=== PATIENT | female | born 1945 | race Caucasian/White ===

== ENCOUNTER 2016-11-19 16:05 | Outpatient (CLI) | payer MEDICARE, OTHER | END 2016-11-19 16:06 | disposition home or self-care (01) | DX: Z01.812 Encounter for preprocedural laboratory examination (principal); E03.9 Hypothyroidism, unspecified; E55.9 Vitamin D deficiency, unspecified; E78.2 Mixed hyperlipidemia; Z79.899 Other long term (current) drug therapy ==

== ENCOUNTER 2017-01-11 13:23 | Outpatient (CLI) | payer MEDICARE, OTHER | END 2017-01-11 13:24 | disposition home or self-care (01) | DX: Z12.31 Encounter for screening mammogram for malignant neoplasm of breast (principal); R92.1 Mammographic calcification found on diagnostic imaging of breast; Z80.3 Family history of malignant neoplasm of breast ==

== ENCOUNTER 2017-01-20 12:01 | Outpatient (CLI) | payer MEDICARE, OTHER | END 2017-01-20 12:02 | disposition home or self-care (01) | DX: R92.8 Other abnormal and inconclusive findings on diagnostic imaging of breast (principal); N60.01 Solitary cyst of right breast | CPT/HCPCS: 76642; G0206 ==

== ENCOUNTER 2017-01-21 13:09 | Outpatient (CLI) | payer MEDICARE, OTHER | END 2017-01-21 13:10 | disposition home or self-care (01) | LOC: NS 13:09 | PROVIDERS: ATTEND Physician Assistant Medical | DX: Z71.3 Dietary counseling and surveillance (principal); R73.01 Impaired fasting glucose; E66.9 Obesity, unspecified ==

== ENCOUNTER 2017-06-29 12:43 | Outpatient (CLI) | payer MEDICARE, OTHER ==
--- NOTE | 2017-06-29 17:45 | CT Report ---
CT BRAIN WITHOUT CONTRAST: 06/29/2017 CLINICAL INDICATION: Followup intracranial hemorrhage from outside CT. Axial CT images of the brain were obtained without contrast. In accordance with CT protocol optimization, one or more of the following dose reduction techniques w ere utilized for this exam: automated exposure control, adjustment of mA and/or KV based on patient size, or use of iterative reconstructive technique. Comparison is made to reports of previous CTs of 06/08/2017 and 06/07/2017. The ventricles and sulci are normal in size, shape and configuration. The previously described left subarachnoid and subdural hemorrhage have resolved. The basilar cisterns are patent. There is no ev idence of developing hydrocephalus. The visualized orbital contents and paranasal sinuses appear unr emarkable. IMPRESSION: INTERVAL RESOLUTION OF LEFT SUBDURAL AND SUBARACHNOID BLOOD PREVIOUSLY DESCRIBED. NO EV IDENCE OF DEVELOPING HYDROCEPHALUS. IF OUTSIDE IMAGES BECOME AVAILABLE, AN ADDENDUM WILL BE MADE TO THIS REPORT. JOB #: [id number] EXT JOB #:[id number]
== END 2017-06-29 12:44 | disposition home or self-care (01) ==
LOC: DI 12:43
PROVIDERS: ATTEND Physician Assistant Medical
DX: I62.00 Nontraumatic subdural hemorrhage, unspecified (principal); I10 Essential (primary) hypertension
CPT/HCPCS: 70450

== ENCOUNTER 2017-08-24 09:43 | Outpatient (CLI) | payer MEDICARE, OTHER ==
--- NOTE | 2017-08-24 13:19 | XRAY Report ---
EXAM: RIGHT KNEE RADIOGRAPHY EXAM DATE: 08/24/2017 10:00 AM. CLINICAL HISTORY: Right knee pain. Follow up patellar fracture. COMPARISON: 06/21/2017. TECHNIQUE: 4 views. FINDINGS: Bones: Sclerosis and irregular lucency along the inferior patella likely representing healing fractur e. Sclerosis noted along the right lateral tibial plateau. Joints: Right knee effusion. No significant joint space narrowing. Soft Tissues: Normal. No soft tissue swelling. IMPRESSION: 1. Healing inferior right patellar fracture. 2. Sclerosis along the proximal right tibial plateau, nonspecific degenerative or posttraumatic in or igin. [facility] Referring Provider Line: [phone] SITE ID: [id number]
== END 2017-08-24 09:44 | disposition home or self-care (01) ==
LOC: DI 09:43
PROVIDERS: ATTEND Physician Assistant Medical
DX: S82.001D Unspecified fracture of right patella, subsequent encounter for closed fracture with routine healing (principal)

== ENCOUNTER 2018-01-26 08:00 | Outpatient (CLI) | payer MEDICARE, OTHER ==
--- NOTE | 2018-01-26 17:14 | Mammography Report ---
SCREENING MAMMOGRAM: 01/26/2018 CLINICAL INDICATION: A 72-year-old with family history of breast cancer for screening. COMPARISON: 01/2017, 12/2016, 10/2012, 10/2011, 03/2009. TECHNIQUE: Routine CC and MLO projections were obtained of the breasts. FINDINGS: The breasts again demonstrate scattered fibroglandular densities bilaterally. Coarse and punctate, typically benign calcifications are present. No suspicious masses, clustered microcalcifications, or regions of architectural distortion are identified. IMPRESSION: BENIGN FINDINGS. RECOMMENDATION: Routine annual screening unless otherwise clinically indicated. BI-RADS CATEGORY 2 BENIGN FINDINGS. STANDARD QUALIFYING STATEMENTS: 1. This examination was reviewed with the aid of Computer-Aided Detection (CAD). 2. A negative or benign imaging report should not delay biopsy if clinically suspicious findings are present. Consider surgical consultation if warranted. More than 5% of cancers are not identified by imaging. 3. Dense breasts may obscure an underlying neoplasm. TD: 01/26/2018 17:13
== END 2018-01-26 08:01 | disposition home or self-care (01) ==
LOC: DI 08:00
PROVIDERS: ATTEND Physician Assistant Medical
DX: Z12.31 Encounter for screening mammogram for malignant neoplasm of breast (principal)
CPT/HCPCS: 77067

== ENCOUNTER 2018-04-21 12:03 | Outpatient (CLI) | payer MEDICARE, OTHER ==
[2018-04-21 12:36] LABS: ALBUMIN 4.2 g/dL (3.2-5.5); ALBUMIN/GLOBULIN RATIO 1.2 (1.0-2.2); BILIRUBIN,TOTAL 0.9 mg/dL (0.2-1.0); CALCIUM 10.6 mg/dL (8.5-10.3); CREATININE 0.9 mg/dL (0.4-1.0); TOTAL PROTEIN 7.8 g/dL (6.7-8.2)
--- NOTE | 2018-04-21 12:43 | XRAY Report ---
Procedure Date: 04/21/2018 Accession Number: [id number] / [id number] Procedure: XR - Chest 2 View X-Ray CPT Code: 29149 FULL RESULT: EXAM: Chest 2 View X-Ray DATE: 04/21/2018 12:37 PM CLINICAL HISTORY: CHEST PRESSURE,RBBB COMPARISON: None. TECHNIQUE: 2 views. FINDINGS: Lungs/Pleura: No focal opacities evident. No pneumothorax or pleural effusion. Normal volumes. Mediastinum: Heart and mediastinal contours are unremarkable. Other: None. IMPRESSION: Normal 2-view chest radiography. [facility]
== END 2018-04-21 12:04 | disposition home or self-care (01) ==
LOC: LAB 12:03 → DI 12:04
PROVIDERS: ATTEND Physician Assistant Medical
DX: R06.00 Dyspnea, unspecified (principal); R07.89 Other chest pain; I45.10 Unspecified right bundle-branch block
CPT/HCPCS: 36415; 71046; 80053; 83880; 84484; 85379

== ENCOUNTER 2018-06-29 05:31 | Emergency (ER) | payer MEDICARE, OTHER ==
[2018-06-29 05:49] LABS: BASOPHILS # (AUTO) 0.1 10^3/uL (0.0-0.1); BASOPHILS % (AUTO) 1.4 %; EOSINOPHILS # (AUTO) 0.2 10^3/uL (0.0-0.7); LYMPHOCYTES # (AUTO) 1.8 10^3/uL (1.5-3.5); LYMPHOCYTES % (AUTO) 27.6 %; MEAN CORPUSCULAR HEMOGLOBIN 29.4 pg (27.0-31.0); MEAN CORPUSCULAR HGB CONC 33.3 g/dL (32.0-36.0); MEAN CORPUSCULAR VOLUME 88.1 fL (81.0-99.0); MEAN PLATELET VOLUME 8.8 fL (7.9-10.8); MONOCYTES # (AUTO) 0.5 10^3/uL (0.0-1.0); MONOCYTES % (AUTO) 6.9 %; NEUTROPHILS # (AUTO) 4.1 10^3/uL (1.5-6.6); NEUTROPHILS % (AUTO) 61.1 %; PLT - PLATELET COUNT 235 10^3/uL (130-450); RED BLOOD COUNT 5.09 10^6/uL (4.20-5.40); RED CELL DISTRIBUTION WIDTH 13.5 % (12.0-15.0); WHITE BLOOD COUNT 6.7 x10^3/uL (4.8-10.8)
[2018-06-29] MEDS ORDERED: ONDANSETRON 4 MG/2 ML VIAL IVP STA (05:49)
[2018-06-29] MEDS ORDERED: SODIUM CHLORIDE 0.9% 1,000 ML IV ONE (05:49)
[2018-06-29] MEDS ORDERED: KETOROLAC 60 MG/2 ML VIAL IVP STA (05:49)
[2018-06-29 05:55] LABS: BILIRUBIN,URINE NEGATIVE (NEGATIVE); GLUCOSE, URINE (UA) NEGATIVE (NEGATIVE); KETONES,URINE (UA) NEGATIVE (NEGATIVE); LEUKOCYTE ESTERASE, URINE NEGATIVE (NEGATIVE); NITRITE,URINE NEGATIVE (NEGATIVE); OCCULT BLOOD,URINE LARGE (NEGATIVE); PROTEIN,URINE NEGATIVE (NEGATIVE); UROBILINOGEN,URINE 0.2 (NORMAL) E.U./dL (NORMAL)
--- NOTE | 2018-06-29 05:55 | ED Physician Documentation ---
PD HPI ABD PAIN - Stated complaint Stated Complaint: NAUSEA/VOMITING/L SIDE ABD PAIN - Chief complaint Chief Complaint: Abd Pain - History obtained from History obtained from: Patient, Family - History of Present Illness Timing - onset: Today Timing - duration: Hours (3) Timing - details: Abrupt onset Pain level max: 10 Pain level now: 9 Quality: Aching, Pain Location: LLQ Radiation: Lower back Improved by: Other (nothing) Worsened by: Other (nothing) Associated symptoms: Nausea. No: Fever, Vomiting, Hematemesis, Diarrhea, Constipation, Melena, Hematochezia, Dysuria, Hematuria Similar symptoms before: Has not had sx before Recently seen: Not recently seen Review of Systems Ten Systems: 10 systems reviewed and negative Constitutional: denies: Fever, Chills Cardiac: denies: Chest pain / pressure Respiratory: denies: Cough : denies: Dysuria, Frequency, Hesitancy, Hematuria Skin: denies: Rash Musculoskeletal: denies: Neck pain, Back pain, Extremity pain Neurologic: denies: Generalized weakness, Focal weakness, Numbness, Headache PD PAST MEDICAL HISTORY - Past Medical History Past Medical History: Yes Cardiovascular: Hypertension Respiratory: Asthma Endocrine/Autoimmune: HyPOthyroidism GI: Other - Past Surgical History Past Surgical History: Yes 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 HEENT: Tonsil/Adenoidectomy - Present Medications Home Medications: Ambulatory Orders Medication Instructions Recorded Confirmed Levothyroxine Sodium [Synthroid] 100 mcg PO DAILY 03/19/15 12/26/15 Losartan [Cozaar] 100 mg PO DAILY 12/26/15 12/26/15 Carvedilol 1 tab PO BID 06/29/18 06/29/18 Cholecalciferol [Vitamin D3] 10,000 unit PO DAILY 06/29/18 06/29/18 Estrogen,Con/M-Progest Acet 1 tab PO DAILY 06/29/18 06/29/18 [Prempro 0.625-2.5 mg Tablet] Ibuprofen [Motrin] 800 mg PO Q8H PRN #30 tablet 06/29/18 [place]-3/Dha/Epa/Fish Oil [[place] 3 1 cap PO DAILY 06/29/18 06/29/18 500 Softgel] Ondansetron Odt [Zofran] 4 mg TL Q6H PRN #10 tablet 06/29/18 Oxycodone HCl/Acetaminophen 1 - 2 each PO Q6H PRN #14 tablet 06/29/18 [Percocet 5-325 mg Tablet] amLODIPine [Norvasc] 5 mg PO BID 06/29/18 06/29/18 hydroCHLOROthiazide [Hydrodiuril] 12.5 mg PO DAILY 06/29/18 06/29/18 - Allergies Allergies/Adverse Reactions: Allergies Allergy/AdvReac Type Severity Reaction Status Date / Time No Known Drug Allergies Allergy Verified 06/29/18 05:46 - Social History Does the pt smoke?: No Smoking Status: Never smoker Does the pt drink ETOH?: No Does the pt have substance abuse?: No - Immunizations Immunizations are current?: Yes Immunizations: TDAP >10years/unknown - POLST Patient has POLST: No PD ED PE NORMAL - Vitals Vital signs reviewed: Yes - General General: Alert and oriented X 3, No acute distress - HEENT HEENT: Moist mucous membranes - Neck Neck: Supple, no meningeal sign - Cardiac Cardiac: RRR - Respiratory Respiratory: No respiratory distress, Clear bilaterally - Abdomen Abdomen: Soft, Other (Tender to palpation left lower quadrant. No rebound or guarding. No peritoneal signs) - Back Back: No CVA TTP, No spinal TTP - Derm Derm: Warm and dry - Neuro Neuro: Alert and oriented X 3 - Psych Psych: Normal mood, Normal affect Results - Vitals Vitals: Vital Signs - 24 hr 06/29/18 05:35 Temperature 36.8 C Heart Rate 74 Respiratory 20 Rate Blood Pressure 164/100 H O2 Saturation 98 Oxygen O2 Source Room air - Labs Labs: Laboratory Tests 06/29/18 05:40 WBC 6.7 RBC 5.09 Hgb 15.0 Hct 44.9 MCV 88.1 MCH 29.4 MCHC 33.3 RDW 13.5 Plt Count 235 MPV 8.8 Neut # (Auto) 4.1 Lymph # (Auto) 1.8 [place] # (Auto) 0.5 Eos # (Auto) 0.2 Baso # (Auto) 0.1 Absolute Nucleated RBC 0.00 Nucleated RBC % 0.0 - Rads (name of study) CT abd/pelvis Radiology: Prelim report reviewed, EMP read contemporaneously, See rad report (4 mm calculus in the distal left ureter, producing left hydronephrosis and hydroureter. ) PD MEDICAL DECISION MAKING - ED course Complexity details: reviewed results, re-evaluated patient, considered differential, d/w patient, d/w family ED course: Patient is a 73-year-old female with a distal left ureteral stone, 4 mm. Pain well controlled in the emergency department with Toradol, morphine and IV lidocaine. Will place on pain medications for home and have her follow-up closely with her doctor. No evidence of infected ureteral stone. No pyelonephritis. Patient counseled regarding signs and symptoms for which I believe and urgent re-evaluation would be necessary. Patient with good understanding of and agreement to plan and is comfortable going home at this time This document was made in part using voice recognition software. While efforts are made to proofread this document, sound alike and grammatical errors may occur. - Sepsis Event Vital Signs: Vital Signs - 24 hr 06/29/18 05:35 Temperature 36.8 C Heart Rate 74 Respiratory 20 Rate Blood Pressure 164/100 H O2 Saturation 98 Oxygen O2 Source Room air Departure - Departure Disposition: 01 Home, Self Care Clinical Impression: Ureteral stone Condition: Good Instructions: ED Stone Renal W Colic Follow-Up: Raquel Daly PA-C [Primary Care Provider] - Within 1 week Prescriptions: Ibuprofen [Motrin] 800 mg PO Q8H PRN #30 tablet PRN Reason: PAIN &/OR FEVER Ondansetron Odt [Zofran] 4 mg TL Q6H PRN #10 tablet PRN Reason: Nausea / Vomiting Oxycodone HCl/Acetaminophen [Percocet 5-325 mg Tablet] 1 - 2 each PO Q6H PRN #14 tablet PRN Reason: pain Comments: You appear to have a 4 mm distal left ureteral stone. This should pass without difficulty. Continue the pain medications as prescribed. Return if you worsen. Do not drink alcohol or drive while on narcotic pain medicine. Note that many narcotic pain relievers also contain tylenol/acetaminophen. Please ensure that your total dose of acetaminophen from all sources does not exceed 3 grams (3000mg) per day. You may constipated on this medication, take a stool softener such as "Colace" twice a day while you are on it. Also recommend a [id number]-xec-[id number] laxative such as senna or MiraLAX any day that you do not have a bowel movement. If you received narcotic pain medication in the emergency department, do not drive or operate machinery for the next 24 hours.
[2018-06-29 06:00] LABS: ALBUMIN 4.4 g/dL (3.2-5.5); ALBUMIN/GLOBULIN RATIO 1.2 (1.0-2.2); BILIRUBIN,TOTAL 0.3 mg/dL (0.2-1.0); CALCIUM 9.3 mg/dL (8.5-10.3); TOTAL PROTEIN 8.1 g/dL (6.7-8.2)
[2018-06-29] MEDS ORDERED: IOPAMIDOL-300 100 ML VIAL ONE (06:03)
[2018-06-29 06:06] LABS: BACTERIA,URINE Rare /HPF (None Seen); CLARITY,URINE HAZY (CLEAR); RBC,URINE TNTC /HPF (0-5); SQUAMOUS EPITHELIAL CELL,UR FEW Squamous (<= Few)
[2018-06-29] MEDS ORDERED: MORPHINE 2 MG/ML CARPUJECT IVP STA (06:13)
[2018-06-29] MEDS ORDERED: IOPAMIDOL-300 100 ML VIAL IVP ONE (06:47)
[2018-06-29] MEDS ORDERED: LIDOCAINE-MPF 2% 6 ML in SODIUM CHLORIDE 0.9% 50 ML IV STA (06:54)
--- NOTE | 2018-06-29 06:54 | CT Report ---
Reason: LLQ abd pain Procedure Date: 06/29/2018 Accession Number: [id number] / [id number] Procedure: CT - Abdomen/Pelvis W/ CPT Code: FULL RESULT: EXAM: CT ABDOMEN AND PELVIS EXAM DATE: 06/29/2018 06:43 AM. CLINICAL HISTORY: LLQ abd pain. COMPARISONS: ABDOMEN/PELVIS W/O 04/12/2015 12:40 AM. TECHNIQUE: Routine helical CT imaging was performed through the abdomen and pelvis. IV contrast: 100 ML ISOVUE 300. Enteric contrast: No. Reconstructions: Coronal and sagittal. In accordance with CT protocol optimization, one or more of the following dose reduction techniques were utilized for this exam: automated exposure control, adjustment of mA and/or KV based on patient size, or use of iterative reconstructive technique. FINDINGS: Lung Bases: Unremarkable. Liver: Normal. No masses. Gallbladder/Bile Ducts: Postoperative changes of cholecystectomy. No biliary dilatation. Spleen: Normal. Pancreas: Normal. Adrenal Glands: Normal. Kidneys: There is delayed excretion of contrast by the left kidney, relative to the right, with mild left hydronephrosis and hydroureter. There is a 4 mm calculus in the distal left ureter. Peritoneal Cavity/Bowel: Normal. No free fluid, free air or adenopathy. No masses or acute inflammatory process. Colonic diverticulosis, without CT evidence of diverticulitis. Pelvic Organs: Normal. The bladder and visualized pelvic organs are within normal limits. Vasculature: No aneurysms or other significant abnormality. Bones: No significant abnormality. Other: Small periumbilical hernia, containing fat. IMPRESSION: 4 mm calculus in the distal left ureter, producing left hydronephrosis and hydroureter. [facility]
[2018-06-29 07:42] VITALS: BP 111/88
== END 2018-06-29 07:41 | disposition home or self-care (01) ==
LOC: ED 05:31
DX: N13.2 Hydronephrosis with renal and ureteral calculous obstruction (principal); I10 Essential (primary) hypertension; E03.9 Hypothyroidism, unspecified
CPT/HCPCS: 36415; 74177; 80053; 81001; 83690; 85025; 96374; 96375; 99284; J7040; Q9967; 81003; 87086

== ENCOUNTER 2018-07-21 14:42 | Outpatient (CLI) | payer MEDICARE, OTHER ==
[2018-07-21] MEDS ORDERED: IOPAMIDOL-300 100 ML VIAL ONE (14:53)
[2018-07-21] MEDS ORDERED: IOPAMIDOL-300 100 ML VIAL IVP ONE (15:24)
--- NOTE | 2018-07-21 15:33 | CT Report ---
Reason: ABDOMINAL PAIN, LLQ Procedure Date: 07/21/2018 Accession Number: [id number] / [id number] Procedure: CT - Abdomen/Pelvis W/WO CPT Code: FULL RESULT: EXAM: CT ABDOMEN WITHOUT AND WITH CONTRAST EXAM DATE: 07/21/2018 03:16 PM. HISTORY: ABDOMINAL PAIN, LLQ. COMPARISON: ABDOMEN/PELVIS W/ 06/29/2018 6:31 AM. TECHNIQUE: Routine helical CT imaging was performed through the abdomen before and after administration of IV contrast: ISOVUE 300 100mL. Enteric contrast: No. Reconstruction: Coronal and sagittal. In accordance with CT protocol optimization, one or more of the following dose reduction techniques were utilized for this exam: automated exposure control, adjustment of mA and/or KV based on patient size, or use of iterative reconstructive technique. FINDINGS: Lung Bases: Unremarkable. Liver: Normal. No masses. Gallbladder/Bile Ducts: Unremarkable. Spleen: Normal. Pancreas: Normal. No masses or ductal obstruction. Adrenal Glands: Normal. Kidneys: No evidence of significant left hydronephrosis. There is mild left hydroureter. There is a 0.5 x 0.3 cm stone at the left ureterovesicular junction. There are small nonobstructing stones within the mid right kidney. No evidence of right-sided obstructing stone or hydronephrosis. Peritoneal Cavity/Bowel: Normal. No free fluid, free air or adenopathy. No masses or acute inflammatory process. The appendix is not seen. Vasculature: No aneurysms or other significant abnormality. Bones: No significant abnormality. Other: None. IMPRESSION: 1. There is a 0.5 x 0.3 cm stone at the left ureterovesicular junction. There is mild left hydroureter. No evidence of significant left hydronephrosis. 2. There are small nonobstructing stones within the right kidney. 3. No acute gastrointestinal tract abnormalities are seen. [facility]
== END 2018-07-21 14:43 | disposition home or self-care (01) ==
LOC: DI 14:42
PROVIDERS: ATTEND Physician Assistant Medical
DX: N20.2 Calculus of kidney with calculus of ureter (principal); N13.4 Hydroureter
CPT/HCPCS: 74178; Q9967

== ENCOUNTER → 2018-07-21 | Outpatient (CLI) | payer MEDICARE, OTHER ==
[2018-07-21 15:14] LABS: BASOPHILS # (AUTO) 0.1 10^3/uL (0.0-0.1); BASOPHILS % (AUTO) 1.4 %; EOSINOPHILS # (AUTO) 0.3 10^3/uL (0.0-0.7); EOSINOPHILS % (AUTO) 3.6 %; HGB - HEMOGLOBIN 14.6 g/dL (12.0-16.0); LYMPHOCYTES # (AUTO) 2.3 10^3/uL (1.5-3.5); LYMPHOCYTES % (AUTO) 31.3 %; MEAN CORPUSCULAR HEMOGLOBIN 29.7 pg (27.0-31.0); MEAN CORPUSCULAR VOLUME 87.4 fL (81.0-99.0); MEAN PLATELET VOLUME 9.9 fL (7.9-10.8); MONOCYTES # (AUTO) 0.5 10^3/uL (0.0-1.0); MONOCYTES % (AUTO) 7.1 %; NEUTROPHILS # (AUTO) 4.1 10^3/uL (1.5-6.6); NEUTROPHILS % (AUTO) 56.6 %; PLT - PLATELET COUNT 256 10^3/uL (130-450); RED BLOOD COUNT 4.92 10^6/uL (4.20-5.40); RED CELL DISTRIBUTION WIDTH 13.6 % (12.0-15.0); WHITE BLOOD COUNT 7.3 x10^3/uL (4.8-10.8)
[2018-07-21 15:30] LABS: ALBUMIN 4.5 g/dL (3.2-5.5); ALBUMIN/GLOBULIN RATIO 1.2 (1.0-2.2); ALKALINE PHOSPHATASE 82 IU/L (42-121); ALT ALANINE AMINOTRANSFERASE 20 IU/L (10-60); AST ASPARTATE AMINOTRANSFERASE 26 IU/L (10-42); BILIRUBIN,TOTAL 0.9 mg/dL (0.2-1.0); BUN - BLOOD UREA NITROGEN 19 mg/dL (6-20); CALCIUM 9.6 mg/dL (8.5-10.3); CARBON DIOXIDE - CO2 24 mmol/L (21-32); CHLORIDE 101 mmol/L (101-111); CREATININE 0.8 mg/dL (0.4-1.0); GFR - MDRD 71 (>89); GLUCOSE 125 mg/dL (70-100); LIPASE 38 U/L (22-51); SODIUM 137 mmol/L (135-145); TOTAL PROTEIN 8.3 g/dL (6.7-8.2)
[2018-07-21 15:50] LABS: CRP - C-REACTIVE PROTEIN < 1.0 mg/dL (0-1.0)
== END ==
LOC: LAB.R 13:42
PROVIDERS: ATTEND Physician Assistant Medical
DX: R10.32 Left lower quadrant pain (principal)
CPT/HCPCS: 80053; 83690; 85025; 85651; 86140

== ENCOUNTER 2018-08-23 08:00 | Outpatient (CLI) | payer MEDICARE, OTHER ==
[2018-08-23 13:02] LABS: ALBUMIN 4.3 g/dL (3.2-5.5); ALBUMIN/GLOBULIN RATIO 1.2 (1.0-2.2); ALKALINE PHOSPHATASE 84 IU/L (42-121); ALT ALANINE AMINOTRANSFERASE 22 IU/L (10-60); AST ASPARTATE AMINOTRANSFERASE 24 IU/L (10-42); BILIRUBIN,TOTAL 0.5 mg/dL (0.2-1.0); BUN - BLOOD UREA NITROGEN 17 mg/dL (6-20); CALCIUM 9.5 mg/dL (8.5-10.3); CARBON DIOXIDE - CO2 25 mmol/L (21-32); CHLORIDE 107 mmol/L (101-111); CHOL/HDL RATIO 3.8 (<4.4); CHOLESTEROL 210 mg/dL; CREATININE 0.8 mg/dL (0.4-1.0); GFR - MDRD 71 (>89); GLUCOSE 115 mg/dL (70-100); HDL CHOLESTEROL 56 mg/dL; LDL CHOLESTEROL,CALCULATED 141 mg/dL; LDL/HDL RATIO 2.5 (<4.4); SODIUM 140 mmol/L (135-145); TOTAL PROTEIN 7.8 g/dL (6.7-8.2); VLDL CHOLESTEROL 13 mg/dL
[2018-08-23 13:26] LABS: HB2 TOTAL 16.1 g/dL; HEMOGLOBIN A1C 0.58 g/dL; HEMOGLOBIN A1C % 5.4 % (4.6-6.2)
== END 2018-08-23 23:59 | disposition home or self-care (01) ==
LOC: LAB.R 08:00
PROVIDERS: ATTEND Physician Assistant Medical
DX: R73.9 Hyperglycemia, unspecified (principal); Z79.899 Other long term (current) drug therapy; E03.9 Hypothyroidism, unspecified; E78.2 Mixed hyperlipidemia
CPT/HCPCS: 80053; 80061; 83036; 83721; 84443

== ENCOUNTER 2018-10-05 08:00 | Outpatient (CLI) | payer MEDICARE, OTHER ==
[2018-10-05 12:11] LABS: ALT ALANINE AMINOTRANSFERASE 24 IU/L (10-60); AST ASPARTATE AMINOTRANSFERASE 22 IU/L (10-42); CHOL/HDL RATIO 2.6 (<4.4); CHOLESTEROL 148 mg/dL; HDL CHOLESTEROL 57 mg/dL; LDL CHOLESTEROL,CALCULATED 78 mg/dL; LDL/HDL RATIO 1.4 (<4.4); VLDL CHOLESTEROL 13 mg/dL
== END 2018-10-05 23:59 | disposition home or self-care (01) ==
LOC: LAB.R 08:00
PROVIDERS: ATTEND Physician Assistant Medical
DX: E78.2 Mixed hyperlipidemia (principal); Z79.899 Other long term (current) drug therapy
CPT/HCPCS: 80061; 83721; 84450; 84460

== ENCOUNTER 2019-11-30 08:12 | Outpatient (CLI) | payer MEDICARE, OTHER ==
[2019-11-30 12:23] LABS: BASOPHILS # (AUTO) 0.1 10^3/uL (0.0-0.1); BASOPHILS % (AUTO) 0.9 %; EOSINOPHILS # (AUTO) 0.3 10^3/uL (0.0-0.7); EOSINOPHILS % (AUTO) 4.2 %; HGB - HEMOGLOBIN 14.4 g/dL (12.0-16.0); LYMPHOCYTES # (AUTO) 2.3 10^3/uL (1.5-3.5); LYMPHOCYTES % (AUTO) 33.4 %; MEAN CORPUSCULAR HEMOGLOBIN 28.9 pg (27.0-31.0); MEAN CORPUSCULAR HGB CONC 31.6 g/dL (32.0-36.0); MEAN CORPUSCULAR VOLUME 91.2 fL (81.0-99.0); MEAN PLATELET VOLUME 11.4 fL (7.9-10.8); MONOCYTES # (AUTO) 0.7 10^3/uL (0.0-1.0); MONOCYTES % (AUTO) 9.6 %; NEUTROPHILS # (AUTO) 3.6 10^3/uL (1.5-6.6); NEUTROPHILS % (AUTO) 51.6 %; PLT - PLATELET COUNT 242 10^3/uL (130-450); RED BLOOD COUNT 4.99 10^6/uL (4.20-5.40); RED CELL DISTRIBUTION WIDTH 13.3 % (12.0-15.0)
[2019-11-30 12:42] LABS: ALBUMIN 4.1 g/dL (3.2-5.5); ALBUMIN/GLOBULIN RATIO 1.3 (1.0-2.2); ALKALINE PHOSPHATASE 65 IU/L (42-121); ALT ALANINE AMINOTRANSFERASE 23 IU/L (10-60); AST ASPARTATE AMINOTRANSFERASE 21 IU/L (10-42); BILIRUBIN,TOTAL 0.8 mg/dL (0.2-1.0); BUN - BLOOD UREA NITROGEN 19 mg/dL (6-20); CALCIUM 9.2 mg/dL (8.5-10.3); CARBON DIOXIDE - CO2 24 mmol/L (21-32); CHLORIDE 104 mmol/L (101-111); CHOL/HDL RATIO 3.8 (<4.4); CHOLESTEROL 196 mg/dL; GFR - MDRD 54 (>89); GLUCOSE 108 mg/dL (70-100); HDL CHOLESTEROL 51 mg/dL; LDL CHOLESTEROL,CALCULATED 125 mg/dL; LDL/HDL RATIO 2.5 (<4.4); SODIUM 137 mmol/L (135-145); TOTAL PROTEIN 7.3 g/dL (6.7-8.2); VLDL CHOLESTEROL 20 mg/dL
[2019-11-30 13:15] LABS: THYROID STIMULATING HORMONE 2.66 uIU/mL (0.34-5.60)
[2019-11-30 13:17] LABS: FREE T4 (FREE THYROXINE) 0.95 ng/dL (0.58-1.64)
== END 2019-11-30 23:59 | disposition home or self-care (01) ==
LOC: LAB.N 08:12
PROVIDERS: ATTEND Family Medicine
DX: E03.9 Hypothyroidism, unspecified (principal); E78.2 Mixed hyperlipidemia; I10 Essential (primary) hypertension
CPT/HCPCS: 36415; 80053; 80061; 83721; 84439; 84443; 84481; 85025

== ENCOUNTER 2019-12-05 12:12 | Emergency (ER) | payer MEDICARE, OTHER ==
[2019-12-05] MEDS ORDERED: ACETAMINOPHEN 325 MG TABLET PO STA (12:45)
--- NOTE | 2019-12-05 12:48 | ED Physician Documentation ---
PD HPI URI - Stated complaint Stated Complaint: FEVER,COUGH - Chief complaint Chief Complaint: Fever - History obtained from History obtained from: Patient - History of Present Illness Timing - onset: Last night Timing duration: Hours Timing details: Gradual onset, Still present Associated symptoms: Fever, Chills, Sweats, Nasal congestion, Rhinorrhea, Dry cough, Other (nausea and headache) Contributing factors: Sick contact (was around 3 teenagers over the weekend specifically 3 days ago. Kids asymptomatic from [place].) Improves by: Medication Similar symptoms before: Diagnosis (influenza) Recently seen: Clinic - Additional information Additional information: 74-year-old female with a history of fever cough congestion and headache developed last night sent to the emergency department from the clinic with concerns of COVID-19. Her exposure to teenagers from [place] 3 days ago is her concern. Review of Systems Constitutional: reports: Fever, Chills, Myalgias, Fatigue Eyes: denies: Decreased vision Ears: denies: Ear pain Nose: reports: Rhinorrhea / runny nose, Congestion Throat: denies: Sore throat Cardiac: denies: Chest pain / pressure, Palpitations Respiratory: reports: Cough. denies: Dyspnea GI: reports: Nausea. 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 HEENT: Tonsil/Adenoidectomy - Present Medications Home Medications: Ambulatory Orders Medication Instructions Recorded Confirmed Levothyroxine Sodium [Synthroid] 100 mcg PO DAILY 03/19/15 12/26/15 Losartan [Cozaar] 100 mg PO DAILY 12/26/15 12/26/15 Cholecalciferol [Vitamin D3] 10,000 unit PO DAILY 06/29/18 06/29/18 Estrogen,Con/M-Progest Acet 1 tab PO DAILY 06/29/18 06/29/18 [Prempro 0.625-2.5 mg Tablet] Ibuprofen [Motrin] 800 mg PO Q8H PRN #30 tablet 06/29/18 [place]-3/Dha/Epa/Fish Oil [[place] 3 1 cap PO DAILY 06/29/18 06/29/18 500 Softgel] Ondansetron Odt [Zofran] 4 mg TL Q6H PRN #10 tablet 06/29/18 Oxycodone HCl/Acetaminophen 1 - 2 each PO Q6H PRN #14 tablet 06/29/18 [Percocet 5-325 mg Tablet] amLODIPine [Norvasc] 5 mg PO BID 06/29/18 06/29/18 carvediloL [Carvedilol] 1 tab PO BID 06/29/18 06/29/18 hydroCHLOROthiazide [Hydrodiuril] 12.5 mg PO DAILY 06/29/18 06/29/18 - Allergies Allergies/Adverse Reactions: Allergies Allergy/AdvReac Type Severity Reaction Status Date / Time No Known Drug Allergies Allergy Verified 12/05/19 12:19 - Social History Does the pt smoke?: No Smoking Status: Never smoker Does the pt drink ETOH?: No Does the pt have substance abuse?: No - Immunizations Immunizations are current?: Yes Immunizations: TDAP >10years/unknown - POLST Patient has POLST: No PD ED PE NORMAL - Vitals Vital signs reviewed: Yes (Febrile and hypertensive) - General General: No acute distress, Well developed/nourished - HEENT HEENT: Atraumatic, PERRL, EOMI, Ears normal, Moist mucous membranes, Pharynx benign, Dentition benign - Neck Neck: Supple, no meningeal sign, No bony TTP - Cardiac Cardiac: RRR, No murmur - Respiratory Respiratory: No respiratory distress, Clear bilaterally - Abdomen Abdomen: Soft, Non tender - Back Back: No CVA TTP, No spinal TTP - Derm Derm: Normal color, Warm and dry, No rash - Extremities Extremities: No deformity, Normal ROM s pain, No edema, No calf tenderness / cord - Neuro Neuro: Alert and oriented X 3, orthopedic coder 2-12 intact, No motor deficit, No sensory deficit, Normal speech Eye Opening: Spontaneous Motor: Obeys Commands Verbal: Oriented GCS Score: 15 - Psych Psych: Normal mood, Normal affect Results - Vitals Vitals: Vital Signs - 24 hr 12/05/19 12:19 Temperature 38.4 C H Heart Rate 93 Respiratory 18 Rate Blood Pressure 154/93 H O2 Saturation 97 Oxygen O2 Source Room air - Labs Labs: Laboratory Tests 12/05/19 12:45 Influenza A (Rapid) Negative Influenza B (Rapid) Negative PD MEDICAL DECISION MAKING - ED course Complexity details: reviewed old records, reviewed results, re-evaluated patient, considered differential, d/w patient ED course: 74-year-old female with acute febrile illness with dry cough and congestion is not hypoxic today and does not require hospitalization. Her influenza swab is negative her COVID- 19 is pending. Per CDC recommendations we will send her home for self quarantine while awaiting her results. She is given instructions for viral URI. She is treated in the ED with decadron and tylenol. Departure - Departure Disposition: Home, Self Care Clinical Impression: Viral URI with cough Condition: Stable Instructions: ED URI Viral Follow-Up: Zack Brennan MD [Primary Care Provider] - Comments: Today your influenza swab was negative. We have tested you for coronavirus and results will be available in 2 days. We recommend you go home to self quarantine and do all of the usual things you do for a viral respiratory infection, extra fluids treating the fever. If you become progressively short of breath return to the emergency department.
[2019-12-05 13:35] VITALS: BP 160/90
== END 2019-12-05 13:36 | disposition home or self-care (01) ==
LOC: ED 12:12
DX: J06.9 Acute upper respiratory infection, unspecified (principal); I10 Essential (primary) hypertension
CPT/HCPCS: 81599; 87275; 87276; 99283; 99284; A9270

== ENCOUNTER 2020-06-07 13:16 | Emergency (ER) | payer MEDICARE, OTHER ==
[2020-06-07 13:56] LABS: BASOPHILS # (AUTO) 0.1 10^3/uL (0.0-0.1); BASOPHILS % (AUTO) 1.1 %; EOSINOPHILS # (AUTO) 0.2 10^3/uL (0.0-0.7); EOSINOPHILS % (AUTO) 2.5 %; HGB - HEMOGLOBIN 15.6 g/dL (12.0-16.0); LYMPHOCYTES # (AUTO) 2.6 10^3/uL (1.5-3.5); MEAN CORPUSCULAR HEMOGLOBIN 30.1 pg (27.0-31.0); MEAN CORPUSCULAR HGB CONC 32.8 g/dL (32.0-36.0); MEAN CORPUSCULAR VOLUME 91.9 fL (81.0-99.0); MEAN PLATELET VOLUME 10.9 fL (7.9-10.8); MONOCYTES # (AUTO) 0.8 10^3/uL (0.0-1.0); MONOCYTES % (AUTO) 9.8 %; NEUTROPHILS # (AUTO) 4.4 10^3/uL (1.5-6.6); NEUTROPHILS % (AUTO) 54.3 %; PLT - PLATELET COUNT 253 10^3/uL (130-450); RED BLOOD COUNT 5.18 10^6/uL (4.20-5.40); RED CELL DISTRIBUTION WIDTH 13.2 % (12.0-15.0)
[2020-06-07] MEDS ORDERED: KETOROLAC 30 MG/ML VIAL IVP STA (14:00)
[2020-06-07] MEDS ORDERED: SODIUM CHLORIDE 0.9% 1,000 ML IV STA (14:00)
[2020-06-07] MEDS ORDERED: METOPROLOL TARTRATE 50 MG TABLET PO STA (14:01)
--- NOTE | 2020-06-07 14:05 | ED Physician Documentation ---
History of Present Illness - Stated complaint Stated Complaint: [place] - Chief complaint Chief Complaint: Cardiac - History obtained from History obtained from: Patient - Additonal information Additional information: Patient comes emergency department complaining of a headache at the top of her head and a fluttery chest discomfort for the last week. Patient also states her blood pressures been running high. Patient states she has not been sleeping well and has been depressed since her suddenly in September. She has a history of an NE 2 years ago and is followed by Dr. Liang for her cardiac issues. Patient states she is felt very tired lately. No fevers or chills. She has a new cough that started yesterday. No rhinorrhea or sore throat. No other complaints at this time. Review of Systems Ten Systems: 10 systems reviewed and negative Constitutional: reports: Fatigue. denies: Fever, Chills Eyes: reports: Reviewed and negative Ears: reports: Reviewed and negative Nose: reports: Reviewed and negative Throat: reports: Reviewed and negative Cardiac: reports: Chest pain / pressure, Palpitations Respiratory: reports: Cough GI: reports: Reviewed and negative : reports: Reviewed and negative Skin: reports: Reviewed and negative Musculoskeletal: reports: Reviewed and negative Neurologic: reports: Headache Psychiatric: reports: Reviewed and negative Endocrine: reports: Reviewed and negative Immunocompromised: reports: Reviewed and negative PD PAST MEDICAL HISTORY - Past Medical History Cardiovascular: Hypertension Respiratory: Asthma Endocrine/Autoimmune: HyPOthyroidism GI: Other - Past Surgical History Past Surgical History: Yes General: Appendectomy /UROLOGIST: Hysterectomy HEENT: Tonsil/Adenoidectomy - Present Medications Home Medications: Ambulatory Orders Medication Instructions Recorded Confirmed Levothyroxine Sodium [Synthroid] 100 mcg PO DAILY 03/19/15 12/26/15 Losartan [Cozaar] 100 mg PO DAILY 12/26/15 12/26/15 Cholecalciferol [Vitamin D3] 10,000 unit PO DAILY 06/29/18 06/29/18 Estrogen,Con/M-Progest Acet 1 tab PO DAILY 06/29/18 06/29/18 [Prempro 0.625-2.5 mg Tablet] Ibuprofen [Motrin] 800 mg PO Q8H PRN #30 tablet 06/29/18 Perry-3/Dha/Epa/Fish Oil [[place]ry 3 1 cap PO DAILY 06/29/18 06/29/18 500 Softgel] Ondansetron Odt [Zofran] 4 mg TL Q6H PRN #10 tablet 06/29/18 Oxycodone HCl/Acetaminophen 1 - 2 each PO Q6H PRN #14 tablet 06/29/18 [Percocet 5-325 mg Tablet] amLODIPine [Norvasc] 5 mg PO BID 06/29/18 06/29/18 carvediloL [Carvedilol] 1 tab PO BID 06/29/18 06/29/18 hydroCHLOROthiazide [Hydrodiuril] 12.5 mg PO DAILY 06/29/18 06/29/18 Metoprolol Succinate 25 mg PO DAILY #30 tab.er.24h 06/07/20 Zolpidem Tartrate [Ambien] 10 mg PO QPM PRN #30 tablet 06/07/20 - Allergies Allergies/Adverse Reactions: Allergies Allergy/AdvReac Type Severity Reaction Status Date / Time No Known Drug Allergies Allergy Verified 06/07/20 13:30 - Social History Does the pt smoke?: No Smoking Status: Never smoker Does the pt drink ETOH?: No Does the pt have substance abuse?: No - Immunizations Immunizations are current?: Yes Immunizations: TDAP >10years/unknown - POLST Patient has POLST: No PD ED PE NORMAL - Vitals Vital signs reviewed: Yes - General General: Alert and oriented X 3, No acute distress - HEENT HEENT: Atraumatic, PERRL, EOMI, Moist mucous membranes - Neck Neck: Supple, no meningeal sign - Cardiac Cardiac: RRR, No murmur, Strong equal pulses - Respiratory Respiratory: No respiratory distress, Clear bilaterally, Other (Frequent dry cough.) - Abdomen Abdomen: Soft, Non tender, Non distended - Back Back: No CVA TTP - Derm Derm: Normal color, Warm and dry, No rash - Extremities Extremities: No deformity, No edema, No calf tenderness / cord - Neuro Neuro: Alert and oriented X 3, 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, No motor deficit, No sensory deficit, Normal speech - Psych Psych: Normal mood, Normal affect Results - Vitals Vitals: Oxygen O2 Source Room air - EKG (time done) 1324 Rate: Rate (enter#) (75) Rhythm: NSR [place]: Normal Intervals: Normal CT, RBBB QRS: Normal Ischemia: T wave inversion (V2, V3) Compare to prior EKG: Old EKG unavailable Computer interpretation: Agree with computer - Labs Labs: Laboratory Tests 06/07/20 06/07/20 06/07/20 13:37 13:37 13:37 WBC 8.0 RBC 5.18 Hgb 15.6 Hct 47.6 H MCV 91.9 MCH 30.1 MCHC 32.8 RDW 13.2 Plt Count 253 MPV 10.9 H Neut # (Auto) 4.4 Lymph # (Auto) 2.6 Tate # (Auto) 0.8 Eos # (Auto) 0.2 Baso # (Auto) 0.1 Absolute Nucleated RBC 0.00 Nucleated RBC % 0.0 Sodium 142 Potassium 3.5 Chloride 106 Carbon Dioxide 27 Anion Gap 9.0 BUN 18 Creatinine 1.0 Estimated GFR (MDRD) 54 L Glucose 106 H Calcium 10.1 Total Bilirubin 0.7 AST 26 ALT 27 Alkaline Phosphatase 79 Troponin I High Sens 5.5 B-Natriuretic Peptide Total Protein 8.1 Albumin 4.6 Globulin 3.5 Albumin/Globulin Ratio 1.3 Lipase 34 06/07/20 13:37 WBC RBC Hgb Hct MCV MCH MCHC RDW Plt Count MPV Neut # (Auto) Lymph # (Auto) Tate # (Auto) Eos # (Auto) Baso # (Auto) Absolute Nucleated RBC Nucleated RBC % Sodium Potassium Chloride Carbon Dioxide Anion Gap BUN Creatinine Estimated GFR (MDRD) Glucose Calcium Total Bilirubin AST ALT Alkaline Phosphatase Troponin I High Sens B-Natriuretic Peptide 16 Total Protein Albumin Globulin Albumin/Globulin Ratio Lipase - Rads (name of study) CXR Radiology: Final report received, EMP read indepedently, See rad report (NAD) PD MEDICAL DECISION MAKING - ED course Complexity details: reviewed results, re-evaluated patient, considered differential, d/w patient ED course: Patient was worked up with labs, EKG and chest x-ray. She was given a liter 0.9 normal saline and doses of Toradol and metoprolol. Pt was found to be feeling better after this. Her work-up was unremarkable, and she remained in NSR throughout her stay in the ED. Her BP had improved to 140's/80's. We discussed increasing her home metoprolol by adding an extra dose of 25 mg in the morning, along with the 50 mg she normally takes at night. We have also discussed the need to follow up in a timely manner with her PCP to determine a good long-term plan for the pt's BP control. We have discussed the usual indications for return. Departure - Departure Disposition: 01 Home, Self Care Clinical Impression: Palpitations with regular cardiac rhythm Headache Qualifiers: Headache type: unspecified Headache chronicity pattern: acute headache Intractability: not intractable Qualified Code(s): R51 - Headache Hypertension Qualifiers: Hypertension type: unspecified Qualified Code(s): I10 - Essential (primary) hypertension Insomnia Qualifiers: Insomnia type: unspecified Qualified Code(s): G47.00 - Insomnia, unspecified Condition: Stable Instructions: ED HTN Established, ED Insomnia, ED Palpitations Prescriptions: Zolpidem Tartrate [Ambien] 10 mg PO QPM PRN #30 tablet PRN Reason: Insomnia Metoprolol Succinate 25 mg PO DAILY #30 tab.er.24h Comments: Your labs look good. Please take The extra dose of metoprolol every morning and continue your usual medications in the evening. Please schedule an appointment as soon as possible to follow-up with your primary care physician to discuss whether this is a good long-term plan for your blood pressure control. If you begin to develop worsening chest pain or shortness of breath, especially with any sort of exertion, you should be seen again. You should also set up follow- up with Dr. Liang for reevaluation. Please take the medication for insomnia at night before bed, as needed. Discharge Date/Time: 06/07/20 16:25
[2020-06-07 14:06] LABS: ALBUMIN 4.6 g/dL (3.2-5.5); ALBUMIN/GLOBULIN RATIO 1.3 (1.0-2.2); BILIRUBIN,TOTAL 0.7 mg/dL (0.2-1.0); CALCIUM 10.1 mg/dL (8.5-10.3); TOTAL PROTEIN 8.1 g/dL (6.7-8.2)
--- NOTE | 2020-06-07 14:55 | XRAY Report ---
PROCEDURE: Chest 1 View X-Ray INDICATIONS: chest pain TECHNIQUE: One view of the chest was acquired. COMPARISON: None. FINDINGS: Surgical changes and devices: None. Lungs and pleura: No pleural effusions or pneumothorax. Lungs are clear. Mediastinum: Mediastinal contours appear normal. Heart size is normal. Bones and chest wall: No suspicious bony lesions. Overlying soft tissues appear unremarkable. IMPRESSION: No acute disease Reviewed by: Dwight Bocanegra MD on 06/07/2020 2:54 PM PDT Approved by: Dwight Bocanegra MD on 06/07/2020 2:54 PM PDT Station ID: [id number]
[2020-06-07 16:26] VITALS: BP 127/92
== END 2020-06-07 16:25 | disposition home or self-care (01) ==
LOC: ED 13:16
DX: R00.2 Palpitations (principal); R51 Headache; I10 Essential (primary) hypertension; G47.00 Insomnia, unspecified
CPT/HCPCS: 36415; 71045; 80053; 83690; 83880; 84484; 85025; 93005; 96361; 96374; 99284; A9270

== ENCOUNTER 2023-02-16 10:13 | Outpatient (CLI) | payer MEDICARE, OTHER ==
[2023-02-16 11:33] LABS: BASOPHILS # (AUTO) 0.1 10^3/uL (0.0-0.1); BASOPHILS % (AUTO) 1.2 %; EOSINOPHILS # (AUTO) 0.3 10^3/uL (0.0-0.7); EOSINOPHILS % (AUTO) 4.1 %; HCT - HEMATOCRIT 45.1 % (37.0-47.0); HGB - HEMOGLOBIN 14.4 g/dL (12.0-16.0); LYMPHOCYTES # (AUTO) 2.4 10^3/uL (1.5-3.5); LYMPHOCYTES % (AUTO) 39.3 %; MEAN CORPUSCULAR HEMOGLOBIN 28.9 pg (27.0-31.0); MEAN CORPUSCULAR HGB CONC 31.9 g/dL (32.0-36.0); MEAN CORPUSCULAR VOLUME 90.6 fL (81.0-99.0); MONOCYTES # (AUTO) 0.5 10^3/uL (0.0-1.0); MONOCYTES % (AUTO) 8.8 %; NEUTROPHILS # (AUTO) 2.8 10^3/uL (1.5-6.6); NEUTROPHILS % (AUTO) 46.6 %; PLT - PLATELET COUNT 228 10^3/uL (130-450); RED BLOOD COUNT 4.98 10^6/uL (4.20-5.40); RED CELL DISTRIBUTION WIDTH 13.1 % (12.0-15.0)
[2023-02-16 12:06] LABS: ALBUMIN 4.3 g/dL (3.2-5.5); ALBUMIN/GLOBULIN RATIO 1.3 (1.0-2.2); ALKALINE PHOSPHATASE 62 IU/L (42-121); ALT ALANINE AMINOTRANSFERASE 24 IU/L (10-60); AST ASPARTATE AMINOTRANSFERASE 22 IU/L (10-42); BILIRUBIN,TOTAL 0.6 mg/dL (0.2-1.0); BUN - BLOOD UREA NITROGEN 18 mg/dL (6-20); CALCIUM 9.5 mg/dL (8.5-10.3); CARBON DIOXIDE - CO2 27 mmol/L (21-32); CHLORIDE 110 mmol/L (101-111); CHOL/HDL RATIO 2.1 (<4.4); CHOLESTEROL 119 mg/dL; CREATININE 1.1 mg/dL (0.4-1.0); GFR - MDRD 48 (>89); GLUCOSE 140 mg/dL (70-100); HDL CHOLESTEROL 57 mg/dL; LDL CHOLESTEROL,CALCULATED 52 mg/dL; LDL/HDL RATIO 0.9 (<4.4); POTASSIUM 3.7 mmol/L (3.5-5.0); SODIUM 144 mmol/L (135-145); TOTAL PROTEIN 7.6 g/dL (6.7-8.2); TRIGLYCERIDES 51 mg/dL; VLDL CHOLESTEROL 10 mg/dL
[2023-02-16 12:17] LABS: THYROID STIMULATING HORMONE 2.16 uIU/mL (0.34-5.60)
[2023-02-16 12:25] LABS: ESTIMATED AVERAGE GLUCOSE 134 mg/dL (70-100); HEMOGLOBIN A1c% 6.3 % (4.27-6.07)
== END 2023-02-16 10:14 | disposition home or self-care (01) ==
LOC: LAB.N 10:13
PROVIDERS: ATTEND Family Medicine
DX: E03.9 Hypothyroidism, unspecified (principal); E78.2 Mixed hyperlipidemia; I10 Essential (primary) hypertension; K21.9 Gastro-esophageal reflux disease without esophagitis; R73.9 Hyperglycemia, unspecified; Z79.890 Hormone replacement therapy
CPT/HCPCS: 36415; 80053; 80061; 83036; 83721; 84443; 85025

== ENCOUNTER 2023-10-26 12:48 | Outpatient (CLI) | payer MEDICARE, OTHER ==
--- NOTE | 2023-10-27 11:32 | Mammography Report ---
BILATERAL DIGITAL SCREENING MAMMOGRAM 3D/2D: 10/26/2023 CLINICAL: Routine screening. Family history of breast cancer. Comparison is made to exams dated: 01/26/2018 mammogram, 01/11/2017 mammogram, and 10/27/2012 mammogram - [facility]. There are scattered areas of fibroglandular density in both breasts (category b / 25%-50% glandular t issue). There are benign calcifications in both breasts. No significant masses, calcifications, or other findings are seen in either breast. There has been no significant interval change. IMPRESSION: BENIGN There is no mammographic evidence of malignancy. A 1 year screening mammogram is recommended. Based on the Tyrer Cuzick model (a risk assessment model) the patient's lifetime risk is 3.6% and her 10 year risk is 0.0%. According to the ACR, ACS, and NCCN guidelines, an annual breast MRI exam etta g with mammogram is recommended if the patient's lifetime risk is 20% or greater. This exam was interpreted at Station ID: [id number]. NOTE: For mammograms, a report in lay terms will be sent to the patient. Approximately 15% of breast malignancies will not be visualized mammographically. In the management of a palpable breast mass, a negative mammogram must not discourage biopsy of a clinically suspicious lesion. Electronically Signed By: Shane ariza/juan:10/26/2023 14:28:56 letter sent: No_Letter ACR BI-RADS Category 2: Benign Finding(s) 3342F PARENCHYMAL PATTERN: (A) - The breast(s) demonstrate(s) scattered fibroglandular densities. BI-RADS CATEGORY: (2) - 2 Mammogram [id number] 1 year screening LATERALITY: (B)
== END 2023-10-26 12:49 | disposition home or self-care (01) ==
LOC: DI.N 12:48
DX: Z12.31 Encounter for screening mammogram for malignant neoplasm of breast (principal); R92.323 Mammographic fibroglandular density, bilateral breasts; Z80.3 Family history of malignant neoplasm of breast

== ENCOUNTER 2023-10-30 08:54 | Outpatient (CLI) | payer MEDICARE, OTHER ==
--- NOTE | 2023-11-01 16:57 | MRI Report ---
PROCEDURE: Shoulder RT WO INDICATIONS: RIGHT SHOULDER PAIN TECHNIQUE: Noncontrast oblique coronal T2 fast spin echo with fat saturation, oblique sagittal T1 spin echo and T2 fast spin echo with fat saturation, axial T1 spin echo and T2 fast spin echo with fat saturation a nd 3-D gradient echo through the shoulder. COMPARISON: None. FINDINGS: Image quality: Excellent. Rotator cuff: High grade partial bursal sided tearing of the distal supraspinatus and infraspinatus tendons at their distal insertions. Moderate supraspinatus and infraspinatus tendinosis. The teres mi nor and subscapularis tendons are intact. Grade 2-3 fatty infiltration of the teres minor muscle is m ost likely related to chronic denervation changes. No mass is seen along the course of the axillary n erve. The remaining rotator cuff muscles are normal in bulk. Bones and bursae: No acute trabecular bone injury or fracture. Chronic changes and cystic changes are seen at the posterosuperior humeral head and lesser tuberosity near the rotator cuff insertions. The re is partial thickness cartilage irregularity in the glenohumeral joint with small marginal osteophy kylie. Moderate degenerative changes are seen in the acromioclavicular joint with cystic changes, subch ondral edema, marginal osteophyte formation. There is a small amount of fluid in the subacromial/subd eltoid bursa. No significant glenohumeral effusion is present. Capsule and soft tissues: There is diffuse labral degeneration. The proximal biceps tendon demonstra kylie mild tendinosis. There is effacement of the normal fat signal in the rotator interval. The glenoh umeral ligaments are intact. IMPRESSION: 1.High grade partial intrasubstance and bursal sided tearing of the supraspinatus and infraspinatus t endons of the distal insertion superimposed moderate tendinosis. No full-thickness rotator cuff tear is seen. 2.Grade 2-3 fatty infiltration of the teres minor muscle is most likely related to chronic denervatio n changes. No mass seen along the course of the axillary nerve. 3.Mild proximal biceps tendinosis. 4.Mild glenohumeral osteoarthrosis. Diffuse labral degeneration. 5.Moderate acromioclavicular joint osteoarthrosis. 6.Small subacromial/subdeltoid bursal effusion or mild bursitis. Reviewed by: Shane Maddox MD on 11/01/2023 4:56 PM PST Approved by: Shane Maddox MD on 11/01/2023 4:56 PM PST Station ID: [id number]
== END 2023-10-30 08:55 | disposition home or self-care (01) ==
LOC: DI 08:54
PROVIDERS: ATTEND Orthopaedic Surgery
DX: M75.111 Incomplete rotator cuff tear or rupture of right shoulder, not specified as traumatic (principal); M19.011 Primary osteoarthritis, right shoulder; M67.921 Unspecified disorder of synovium and tendon, right upper arm

== ENCOUNTER 2024-01-14 18:50 | Emergency (ER) | payer MEDICARE, OTHER ==
[2024-01-14] MEDS: ACETAMINOPHEN 325 MG TABLET PO STA (19:20)
[2024-01-14 19:26] VITALS: BP 160/85; O2SAT 98
--- NOTE | 2024-01-14 19:37 | ED Physician Documentation ---
History of Present Illness - Stated complaint Stated Complaint: LT WRIST INJ - Chief complaint Chief Complaint: Trauma Hd/Nk - History obtained from History obtained from: Patient - History of Present Illness Timing: Today Pain level max: 3 Pain level now: 3 - Additonal information Additional information: 78-year-old female presents to the emergency department after trip and fall today at home. She states she was carrying a piece of sheet metal to her garden when she tripped and fell. Injuring the left hand and left wrist. She also struck her face. She states that she is on Eliquis. She states her only pain is in her left hand and left wrist. No neck or back pain. No loss of consciousness. No seizure activity. No lacerations or abrasions. 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 HEENT: Tonsil/Adenoidectomy - Present Medications Home Medications: Ambulatory Orders Medication Instructions Recorded Confirmed Levothyroxine Sodium [Synthroid] 100 mcg PO DAILY 03/19/15 12/26/15 Losartan [Cozaar] 100 mg PO DAILY 12/26/15 12/26/15 Cholecalciferol [Vitamin D3] 10,000 unit PO DAILY 06/29/18 06/29/18 Estrogen,Con/M-Progest Acet 1 tab PO DAILY 06/29/18 06/29/18 [Prempro 0.625-2.5 mg Tablet] Ibuprofen [Motrin] 800 mg PO Q8H PRN #30 tablet 06/29/18 [place]-3/Dha/Epa/Fish Oil [[place] 3 1 cap PO DAILY 06/29/18 06/29/18 500 Softgel] Ondansetron Odt [Zofran] 4 mg TL Q6H PRN #10 tablet 06/29/18 Oxycodone HCl/Acetaminophen 1 - 2 each PO Q6H PRN #14 tablet 06/29/18 [Percocet 5-325 mg Tablet] amLODIPine [Norvasc] 5 mg PO BID 06/29/18 06/29/18 carvediloL [Carvedilol] 1 tab PO BID 06/29/18 06/29/18 hydroCHLOROthiazide [Hydrodiuril] 12.5 mg PO DAILY 06/29/18 06/29/18 Metoprolol Succinate 25 mg PO DAILY #30 tab.er.24h 06/07/20 Zolpidem Tartrate [Ambien] 10 mg PO QPM PRN #30 tablet 06/07/20 - Allergies Allergies/Adverse Reactions: Allergies Allergy/AdvReac Type Severity Reaction Status Date / Time No Known Drug Allergies Allergy Verified 01/14/24 18:59 - Social History Does the pt smoke?: No Smoking Status: Never smoker Does the pt drink ETOH?: No Does the pt have substance abuse?: No - Immunizations Immunizations are current?: Yes Immunizations: TDAP >10years/unknown - POLST Patient has POLST: No PD ED PE NORMAL - Vitals Vital signs reviewed: Yes - General General: Alert and oriented X 3, No acute distress - HEENT HEENT: PERRL, EOMI, Moist mucous membranes, Other (Small abrasion to the forehead and bridge of the nose. No facial bone tenderness. No scalp hematomas or palpable skull fractures.) - Neck Neck: Supple, no meningeal sign, No bony TTP - Cardiac Cardiac: RRR, Strong equal pulses - Respiratory Respiratory: No respiratory distress, Clear bilaterally - Abdomen Abdomen: Soft, Non tender, Non distended - Back Back: No spinal TTP - Derm Derm: Warm and dry - Extremities Extremities: Other (Tender palpation over the left distal radius, mild swelling. No deformity. Neurovascular intact. No snuffbox tenderness. Also has mild tenderness over the fifth metacarpal. 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, No motor deficit, No sensory deficit, Normal speech Eye Opening: Spontaneous Motor: Obeys Commands Verbal: Oriented GCS Score: 15 Results - Vitals Vitals: Vital Signs - 24 hr 01/14/24 01/14/24 18:59 19:22 Temperature 36.8 C Heart Rate 67 68 Respiratory 16 Rate Blood Pressure 160/85 H O2 Saturation 98 Oxygen O2 Source Room air - Rads (name of study) head CT Relevant Findings:: Final report received, See rad report L wrist xray Relevant Findings:: Final report received, See rad report L hand xray Relevant Findings:: Final report received, See rad report PD Medical Decision Making - ED course Complexity details: reviewed results, re-evaluated patient, considered differential, d/w patient ED course: No acute findings on x-rays or head CT. No evidence of acute fractures. Placed in a Velcro splint for comfort. We will have her follow-up with her doctor for repeat x-rays in 1 week if she is continuing to have pain. Neurovascular intact. No snuffbox tenderness. No loss of consciousness. No evidence of intracranial hemorrhage. Ambulating without difficulty. Declines pain medications here or for home. No other acute injuries. Patient counseled regarding signs and symptoms for which I believe and urgent re-evaluation would be necessary. Patient with good understanding of and agreement to plan and is comfortable going home at this time This document was made in part using voice recognition software. While efforts are made to proofread this document, sound alike and grammatical errors may occur. Departure - Departure Disposition: Home, Self Care Clinical Impression: Left wrist sprain Qualifiers: Encounter type: initial encounter Qualified Code(s): S63.502A - Unspecified sprain of left wrist, initial encounter Closed head injury Qualifiers: Encounter type: initial encounter Qualified Code(s): S09.90XA - Unspecified injury of head, initial encounter Condition: Good Instructions: ED Head Injury Closed, ED Sprain Wrist Follow-Up: Zack Brennan MD [Primary Care Provider] - Within 1 week Comments: As we discussed your x-rays and head CT do not show any acute abnormalities. We have placed you in a Velcro splint for comfort. If you are still having pain in 1 week, you will want to follow-up with your doctor for repeat x-rays. You can use Motrin or Tylenol as needed for pain at home. You can sleep tonight, no one needs to wake you up. Please return for worsening pain, vomiting, seizures or other new or worrisome symptoms. PROCEDURE: Hand 3+V LT INDICATIONS: Fall left fifth digit pain TECHNIQUE: 3 views of the hand(s) acquired. COMPARISON: None. FINDINGS: Bones: Diffuse osteopenia. Background degenerative changes of the left hand and wrist. No definite fractures or dislocations. No suspicious bony lesions. Soft tissues: No suspicious soft tissue calcifications or masses. Mild soft tissue swelling. IMPRESSION: Mild soft tissue swelling. No definite fracture or dislocation. If there is persistent clinical concern for a radiographically occult fracture, recommend immobilization and repeat imaging in 10 to 14 days. EXAM: [id number] XR/WRIL3V ([id number]) PROCEDURE: Wrist 3+V LT INDICATIONS: Fall, left wrist pain TECHNIQUE: 3 views of the wrist were acquired. COMPARISON: None. FINDINGS: Bones: Diffuse osteopenia. Polyarticular background degenerative changes. No definite fractures or dislocations. No suspicious bony lesions. Soft tissues: No suspicious soft tissue calcifications or masses. Mild soft tissue swelling. IMPRESSION: Mild soft tissue swelling of the left wrist. No definite fracture. Alignment appears intact. If there is persistent clinical concern for a radiographically occult fracture, recommend immobilization and repeat imaging in 10 to 14 days. EXAM: [id number] CT/HEADWO ([id number]) PROCEDURE: Head WO INDICATIONS: fall, head injury, takes eliquis TECHNIQUE: Noncontrast 4.5 mm thick angled axial sections acquired from the foramen magnum to the vertex. For radiation dose reduction, the following was used: automated exposure control, adjustment of mA and/or kV according to patient size. COMPARISON: None. FINDINGS: Image quality: Excellent. CSF spaces: Basal cisterns are patent. No extra-axial fluid collections. Ventricles are normal in size and shape. Brain: No midline shift. No intracranial masses or hemorrhage. No mass effect. Valera-white matter interface is normal. There cerebral volume loss for age with resultant ventricular and sulcal prominence. There are periventricular and deep white matter chronic small vessel ischemic changes. Atherosclerotic calcifications are noted in the intracranial segments of the bilateral internal carotid arteries. Skull and face: Calvarium and visualized facial bones are intact, without suspicious lesions. Sinuses: Visualized sinuses and mastoids are clear. IMPRESSION: No acute intracranial pathology. Forms: PCP List Discharge Date/Time: 01/14/24 20:28
--- NOTE | 2024-01-14 19:59 | CT Report ---
PROCEDURE: Head WO INDICATIONS: fall, head injury, takes eliquis TECHNIQUE: Noncontrast 4.5 mm thick angled axial sections acquired from the foramen magnum to the vertex. For r adiation dose reduction, the following was used: automated exposure control, adjustment of mA and/or kV according to patient size. COMPARISON: None. FINDINGS: Image quality: Excellent. CSF spaces: Basal cisterns are patent. No extra-axial fluid collections. Ventricles are normal in size and shape. Brain: No midline shift. No intracranial masses or hemorrhage. No mass effect. Valera-white matter i nterface is normal. There cerebral volume loss for age with resultant ventricular and sulcal prominen ce. There are periventricular and deep white matter chronic small vessel ischemic changes. Atheroscle rotic calcifications are noted in the intracranial segments of the bilateral internal carotid arterie s. Skull and face: Calvarium and visualized facial bones are intact, without suspicious lesions. Sinuses: Visualized sinuses and mastoids are clear. IMPRESSION: No acute intracranial pathology. Reviewed by: Tre Herron MD on 01/14/2024 7:58 PM PDT Approved by: Tre Herron MD on 01/14/2024 7:58 PM PDT Station ID: [id number]
--- NOTE | 2024-01-14 20:04 | XRAY Report ---
PROCEDURE: Wrist 3+V LT INDICATIONS: Fall, left wrist pain TECHNIQUE: 3 views of the wrist were acquired. COMPARISON: None. FINDINGS: Bones: Diffuse osteopenia. Polyarticular background degenerative changes. No definite fractures or d islocations. No suspicious bony lesions. Soft tissues: No suspicious soft tissue calcifications or masses. Mild soft tissue swelling. IMPRESSION: Mild soft tissue swelling of the left wrist. No definite fracture. Alignment appears intact. If there is persistent clinical concern for a radiographically occult fracture, recommend immobilizat ion and repeat imaging in 10 to 14 days. Reviewed by: Tre Herron MD on 01/14/2024 8:03 PM PDT Approved by: Tre Herron MD on 01/14/2024 8:03 PM PDT Station ID: [id number]
--- NOTE | 2024-01-14 20:07 | XRAY Report ---
PROCEDURE: Hand 3+V LT INDICATIONS: Fall left fifth digit pain TECHNIQUE: 3 views of the hand(s) acquired. COMPARISON: None. FINDINGS: Bones: Diffuse osteopenia. Background degenerative changes of the left hand and wrist. No definite f ractures or dislocations. No suspicious bony lesions. Soft tissues: No suspicious soft tissue calcifications or masses. Mild soft tissue swelling. IMPRESSION: Mild soft tissue swelling. No definite fracture or dislocation. If there is persistent clinical concern for a radiographically occult fracture, recommend immobilizat ion and repeat imaging in 10 to 14 days. Reviewed by: Tre Herron MD on 01/14/2024 8:05 PM PDT Approved by: Tre Herron MD on 01/14/2024 8:05 PM PDT Station ID: [id number]
== END 2024-01-14 20:28 | disposition home or self-care (01) ==
LOC: ED 18:50
DX: S00.81XA Abrasion of other part of head, initial encounter (principal); S00.31XA Abrasion of nose, initial encounter; S63.502A Unspecified sprain of left wrist, initial encounter; S09.90XA Unspecified injury of head, initial encounter; W01.0XXA Fall on same level from slipping, tripping and stumbling without subsequent striking against object, initial encounter; Y93.89 Activity, other specified; Y92.007 Garden or yard of unspecified non-institutional (private) residence as the place of occurrence of the external cause; I48.91 Unspecified atrial fibrillation; Z79.01 Long term (current) use of anticoagulants
CPT/HCPCS: 70450; 73110; 73130; 99284; A9270